=== PATIENT | female | born 1990 | race Caucasian/White ===

== ENCOUNTER 2025-11-29 23:26 | Emergency (ER) | payer OTHER ==
[2025-12-03] MEDS ORDERED: HYDROX5L PO (08:13)
== END 2025-11-29 23:53 | disposition left against medical advice (07) ==
LOC: EMS 23:26
DX: S61.019A Laceration without foreign body of unspecified thumb without damage to nail, initial encounter (principal); Z53.21 Procedure and treatment not carried out due to patient leaving prior to being seen by health care provider; X58.XXXA Exposure to other specified factors, initial encounter; Y93.89 Activity, other specified; Y92.89 Other specified places as the place of occurrence of the external cause; Y99.8 Other external cause status